=== PATIENT | male | born 1965 | race Caucasian/White ===

== ENCOUNTER 2016-08-07 07:29 | Emergency (ER) | payer OTHER ==
--- NOTE | ~2016-08-07 | US140 ---
[facility] A Service of [facility] RADIOLOGY TEXT RESULTS PATIENT: LIDIA PIKE LOCATION: SED : 67 UNIT #: [id number] AGE: [address]: Susan Simon MD SEX: M ORDER DR: [id number] [address] [address] [id number] MR#: [id number] #: [id number] NAME: LIDIA PIKE : 1965 SEX: M STUDY DATE/TIME: 08/07/2016 9:07 UNIT: SED ROOM: STUDY [place] [facility] [place] Attending Physician: Susan Smion M.D. Ordering Physician: Susan Simon M.D. Primary Care Physician: Vlad Eaton M.D. MEDICAL IMAGING REPORT This report is preliminary unless electronic signature is present. EXAM Left upper extremity Doppler venous ultrasound. DATE: 08/07/2016 HISTORY 40-year-old male with complaints of erythema and edema of the left upper extremity status post possible insect bite three days ago in this location. COMPARISON None. FINDINGS Real-time mcgrath-scale, color Doppler and spectral Doppler imaging was performed of the left upper extremity veins. The left internal jugular, subclavian, axillary and brachial veins demonstrate normal flow, compressibility and/or augmentation without evidence of deep venous thrombosis. In the site of patient's area of complaint, there is a noncompressible superficial vein, thought to represent a clot within a branch of the distal left cephalic vein. Basilic vein is thought to be patent. IMPRESSION 1. There is superficial venous thrombus, thought most likely to be within a branch of the distal cephalic vein. 2. No left upper extremity deep venous thrombosis is seen. Dictated by... Lisa Wells M.D. THIS IS AN ELECTRONICALLY VERIFIED REPORT [facility] A Service of [facility] RADIOLOGY TEXT RESULTS PATIENT: LIDIA PIKE LOCATION: SED : 67 UNIT #: [id number] AGE: [address]: Susan Simon MD SEX: M ORDER DR: Lisa Wells M.D. at 08/09/2016 2:17 PM Butch/karlie TD: 08/07/2016 13:18 JOB #: [id number] MEDICAL IMAGING REPORT Page 1 of 1
[~2016-08-07 07:29] MED LIST: FLOMAX0.4 M1 DOB; FLOMAX0.4 MG PO; LEVAQUIN PO; LORTAB 7.5-5001 TAB PO; PHENERGAN PO
[2016-08-07] MEDS ORDERED: LEVOTHYROXINE PO (07:40)
[2016-08-07 08:19] LABS: BASOPHIL# 0.1 X10e3 (0-0.3); BASOPHIL% 1.2 % (0-2.5); EOSINOPHIL# 0.3 X10e3 (0-0.7); EOSINOPHIL% 2.5 % (0.0-7.0); HEMOGLOBIN 15.5 gm/dL (13.0-16.0); LYMPHOCYTE# 1.7 X10e3 (1.0-3.5); LYMPHOCYTE% 14.5 % (17.0-45.0); MEAN CELL VOLUME 89.7 FL (83-96); MEAN CORPUSCULAR HEMOGLOBIN 30.2 PG (28-34); MEAN CORPUSCULAR HGB CONC 33.7 g/dL (30-36); MEAN PLATELET VOLUME 9.1 FL (6.5-11.5); MONOCYTE# 1.7 X10e3 (0-1.0); MONOCYTE% 13.8 % (3.0-12.0); NEUTROPHIL# 8.2 X10e3 (1.5-7.1); PLATELET COUNT 169 X10e3 (140-420); RED BLOOD COUNT 5.13 X10e (3.90-5.60); RED CELL DISTRIBUTION WIDTH 13.2 % (11.0-15.5)
[2016-08-07 08:20] LABS: DIFF IND NO
[2016-08-07 08:25] LABS: PROTHROMBIN TIME (PATIENT) 11.6 SECONDS (9.5-12.4)
[2016-08-07 08:32] LABS: PARTIAL THROMBOPLASTIN TIME 27.8 SECONDS (25.6-38.1)
[2016-08-07 08:37] LABS: ALBUMIN SERUM 4.2 g/dL (3.5-5.0); BILIRUBIN, DIRECT 0.1 mg/dL (0.0-0.2); BILIRUBIN,INDIRECT 0.7 mg/dL (0.0-0.9); BILIRUBIN,TOTAL 0.8 mg/dL (0.2-2.0); CALCIUM SERUM 9.3 mg/dL (8.4-10.2); CREATININE SERUM 0.9 mg/dL (0.6-1.4); GLOM FILT RATE Estimated 99.9 mL/min (>60); PROTEIN TOTAL SERUM 7.4 g/dL (6.0-8.3)
== END 2016-08-07 10:40 | disposition home or self-care (01) ==
LOC: SED 07:29
PROVIDERS: Emergency Medicine
DX: I82.812 Embolism and thrombosis of superficial veins of left lower extremity (principal); F17.210 Nicotine dependence, cigarettes, uncomplicated; Z79.899 Other long term (current) drug therapy; Z23 Encounter for immunization
CPT/HCPCS: 36415; 80048; 80076; 85025; 85610; 85730; 90471; 90715; 93971; 99284